=== PATIENT | female | born 1965 | race Caucasian/White ===

== ENCOUNTER 2025-01-30 22:04 | Emergency (ER) | payer OTHER, SELFPAY ==
[2025-01-30 22:19] VITALS: BP 151/89
[2025-01-31 02:18] VITALS: BP 137/53
--- NOTE | 2025-01-31 02:21 | EDRN ---
Pt was running around 1630 yesterday, did not see where pavement turned into gravel and fell onto gravel. Pt's pants ripped on L knee. L knee with swelling, bruising and 2 abrasions - no pain. Both palms with abrasions. R wrist pain and L rib
pain. Pt went home and showered to get gravel out and applied bandaids to palms and L knee. Pt concerned she broke a bone which prompted ED visit. Pt did not take anything for pain.
--- NOTE | 2025-01-31 02:47 | ED.GENMED ---
History of Present Illness
General
Chief Complaint: Fall
Source: patient and spouse
Exam Limitations: none
Time Seen by Provider: 01/31/25 02:34
Nursing documentation reviewed up to this point in time: agreed with
History of Present Illness
History of Present Illness:
59-year-old female presenting to the emergency department today with concerns of left knee right wrist and left rib discomfort after a trip and fall while running earlier today. Denies any head trauma not on blood thinners no loss of consciousness
no numbness or weakness.
Past History
Past History
ED Past Medical History: Psychiatric (Anxiety)
ED Past Surgical History: Orthopedic (Calle cyst), Tonsilectomy and Other (Pilonidal cyst removal)
Social History
Tobacco: Non-smoker
Alcohol: Occasional
Personal:
Living: with family
Employment: Not employed
Family History
Family History: Negative CAD
Review of Systems
Review of Systems
Allergies reviewed?: Yes
All Other Systems: ROS reviewed and negative except as documented in HPI and ROS
Phy Exam
Physical Exam
Physical Exam:
GENERAL: Alert , in no apparent distress
EYE: pupils equal and reactive
NECK: Supple, no significant adenopathy.
ENT: o/p clr, mmm.
CARDIAC: Minimal pain to the left lateral ribs regular rate and rhythm .
LUNGS: Clear breath sounds bilaterally, no acute respiratory distress, no wheezes/rales/rhonchi
ABDOMEN: Soft, without focal tenderness, no r/g, no cvat
NEUROLOGICAL: Alert and oriented, no focal neuro deficits
SKIN: Superficial abrasions to the palms bilaterally warm and dry, skin intact.
MUSCULOSKELETAL: Good range of motion of the upper extremities bilaterally as well as the lower extremities. No hip pain no edema, well perfused.
PSYCH: Normal and appropriate interaction.
Course
Orders/Labs/Results
Orders:
Orders
01/30/25 22:23
CR Wrist - Right Min 3 Views Urgent
Comment:
Reason For Exam: fall, right wrist pain
Ribs, Left 3 View W/PA Chest CR [CR Ribs-left 3 Vw W/pa Chest] Urgent
Comment:
Reason For Exam: fall, left anterior chest wall pain
01/31/25 02:49
Ibuprofen [Motrin] 400 mg PO NOW STA
Vital Signs
Initial and Last Documented VS:
Initial Vital Signs
Temp Pulse Resp BP Pulse Ox
98.3 F 75 18 151/89 99
01/30/25 22:19 01/30/25 22:19 01/30/25 22:19 01/30/25 22:19 01/30/25 22:19
Last Documented Vital Signs
Temp Pulse Resp BP Pulse Ox
98.3 F 60 14 137/53 98
01/30/25 22:19 01/31/25 02:18 01/31/25 02:18 01/31/25 02:18 01/31/25 02:18
MDM/Problems Addressed
MDM/Problems Addressed:
67-year-old female presenting to the emergency department today with concerns of discomfort after a ground-level trip and fall while she was running on gravel. Her hands were cleaned thoroughly but ongoing discomfort mainly to her right wrist.
X-ray without signs of fracture. No pain to the anatomical snuffbox. Patient was given a splint for sprain. No evidence of long injury or rib injury on x-ray. Patient likely rib contusion plan for symptomatic treatment. Return precautions given.
Patient claims that she had a tetanus shot roughly 10 years ago a tetanus booster was offered today. She refusing claim that she would not like the able at this time. She understands the risk. What tetanus is and the risk of it were explained to
the patient.
*Critical Care Note
Total Time (30-74mins, 75-104mins- exclusive of procedures): Not Applicable
ED Attending Note
-
Portions of this chart may have been created with voice recognition software.� Occasional wrong word or��sound alike� substitutions may have occurred due to the inherent limitations of voice recognition software.
Discharge Plan
Departure
Patient Disposition: Home (Routine Discharge)
Date of Disposition: 01/31/25
Time of Disposition: 02:49
Patient with high blood pressure during this ER visit?: No
Condition: Good
Covid-19: Not Applicable
Discharge Problem:
Fall, Right wrist sprain, Contusion of rib
Instructions: Preventing falls in adults, Skin Abrasions (DC)
Referrals:
Ishmael Oliveira DO [Family Provider] -
Tony Madera MD [Active] - Follow up in 1 week
Activity Restrictions/Additional Instructions:
You came to the emergency department today with concerns of discomfort after a fall. X-rays did not show signs of fracture. You are given a splint for your wrist discomfort please also ice and elevate. If symptoms are ongoing and not improving
over the next week you will need to follow-up closely with a primary care doctor or orthopedics for reassessment. Return for any worsening, new or concerning symptoms.
Interventions
Interventions:
*Risk Screen - Suicide Last Done: 01/31/25 02:18
*General Assessment Last Done: 01/31/25 02:18
*Neglect/Abuse Screening Last Done: 01/31/25 02:18
*ED- Fall Risk Assessment Last Done: 01/31/25 02:18
*ED COVID-19 Vaccine History Last Done: 01/31/25 02:18
ED-Musculoskeletal Assessment Last Done: 01/31/25 02:18
ED- Neurological Assessment Last Done: 01/31/25 02:18
ED-Skin Assessment Last Done: 01/31/25 02:18
Discharge Date and Time
Print Language: [place]
[2025-01-31] MEDS: MOTRIN 400 MG PO (03:02)
--- NOTE | 2025-01-31 03:13 | EDRN ---
This RN attempted to apply universal wrist splint to R wrist per Bryce STANFORD however after fastening strap between pt's thumb and index finger, pt complained of increased pain on the top of her hand and asked that splint be removed. Pt said she
will take the splint with her and apply it later if needed and it doesn't cause more pain. Instructions provided on how to use.
== END 2025-01-31 03:11 | disposition home or self-care (01) ==
LOC: EMR 22:04
PROVIDERS: EMERGENCY PHYSICIAN Emergency Medicine; FAMILY PHYSICIAN Family Medicine
DX: S63.501A Unspecified sprain of right wrist, initial encounter (principal); S20.212A Contusion of left front wall of thorax, initial encounter; W01.0XXA Fall on same level from slipping, tripping and stumbling without subsequent striking against object, initial encounter
CPT/HCPCS: 99283; 29125; 71101; 73110